=== PATIENT | male | born 1980 | race Caucasian/White ===

== ENCOUNTER 2018-04-16 03:11 | Emergency (ER) | payer OTHER, SELFPAY ==
[2018-04-16] MEDS ORDERED: ONDANSETRON 4 MG/2 ML VIAL ONE (03:28)
[2018-04-16] MEDS ORDERED: NA CHLORIDE 0.9% 1,000 ML ONE (03:28)
[2018-04-16 03:38] LABS: Absolute Lymphocytes (CBC) 1.2 K/uL (0.7-4.9); Absolute Monocytes 0.6 K/uL (0.1-1.3); MCH 30.4 pg (27.0-35.0); MCV 87.1 fL (80-100)
[2018-04-16 03:43] LABS: Potassium 3.8 mEq/L (3.6-5.0)
[2018-04-16 03:44] LABS: Absolute Neutrophil 9.4 K/uL (1.8-8.0); Basophils % 0.2 % (0-1.3); Eosinophils % 1.2 % (0-4.4); Hematocrit 45.3 % (39.6-49.0); Lymphocytes % 10.6 % (15.3-44.8); MPV 8.5 fL (7.6-11.3); Monocytes % 5.6 % (3.3-12.3)
[2018-04-16 03:46] LABS: Albumin 4.3 g/dL (3.2-5.5); Bilirubin Total 1.1 mg/dL (0.3-1.2); Protein, Total 7.6 g/dL (6.0-8.3)
[2018-04-16] MEDS ORDERED: IBUPROFEN 400 MG TAB ONE (04:28)
[2018-04-16 04:52] LABS: Blood Morphology Comment NOT SEEN (NOT SEEN); Platelet Estimate ADEQ
[2018-04-16 05:23] LABS: Urine Blood NEGATIVE (NEG); Urine Glucose NEGATIVE (NEG); Urine Protein TRACE (NEG); Urine Specific Gravity 1.015 (1.005-1.030); Urine pH 8.5 (5.0-7.0)
--- NOTE | 2018-04-16 05:23 | EDPHYS ---
Physician Documentation [facility] Name: Luca Garcia Age: 37 yrs Sex: Male : 1980 Arrival Date: 04/16/2018 Time: 03:12 Bed 5 Private MD: Reid Gracia ED Physician Juan Bowles HPI: 04/16 03:21 This 37 yrs old Male presents to ER via Ambulatory with complaints of ps1 Abdominal Pain, Vomiting. 03:21 States that he had multiple bouts of vomiting that started today. He denies abdominal ps1 pain. Went up to go to the bathroom and felt weak and shaky and decided to come to be evaluated. He has non-bloody or bilious vomiting. No pain at this time. Feels fatigued. . Historical: - Allergies: 03:22 No Known Allergies; ak1 - Home Meds: 03:22 Vitamin B-12 Oral [Active]; Zyrtec Oral [Active]; ak1 - PMHx: 03:22 seasonal allergies; ak1 - PSHx: 03:22 shoulder sx; ak1 - Immunization history:: Adult Immunizations unknown. - Social history:: Smoking status: Patient/guardian denies using tobacco. - Ebola Screening: : No symptoms or risks identified at this time. ROS: 03:21 Constitutional: Negative for fever, chills, and weight loss, Eyes: Negative for injury, ps1 pain, redness, and discharge, Cardiovascular: Negative for chest pain, palpitations, and edema, Respiratory: Negative for shortness of breath, cough, wheezing, and pleuritic chest pain, : Negative for injury, bleeding, discharge, and swelling, MS/Extremity: Negative for injury and deformity, Skin: Negative for injury, rash, and discoloration, Neuro: Negative for headache, weakness, numbness, tingling, and seizure. 03:21 Abdomen/GI: Positive for nausea and vomiting. Exam: 03:21 Constitutional: This is a well developed, well nourished patient who is awake, alert, ps1 and in no acute distress. Head/Face: Normocephalic, atraumatic. Eyes: Pupils equal round and reactive to light, extra-ocular motions intact. Lids and lashes normal. Conjunctiva and sclera are non-icteric and not injected. Chest/axilla: Normal chest wall appearance and motion. Nontender with no deformity. No lesions are appreciated. Respiratory: Lungs have equal breath sounds bilaterally, clear to auscultation and percussion. No rales, rhonchi or wheezes noted. No increased work of breathing, no retractions or nasal flaring. Abdomen/GI: Soft, non-tender, with normal bowel sounds. No distension or tympany. No guarding or rebound. No evidence of tenderness throughout. Back: No spinal tenderness. No costovertebral tenderness. Full range of motion. MS/ Extremity: Pulses equal, no cyanosis. Neurovascular intact. Full, normal range of motion. Neuro: Awake and alert, GCS 15, oriented to person, place, time, and situation. Cranial nerves II-XII grossly intact. Sensory grossly intact. 03:21 Cardiovascular: Rate: tachycardic, Rhythm: regular, Pulses: no pulse deficits are appreciated, JVD: is not appreciated. Vital Signs: 03:20 BP 125 / 89; Pulse 126; Resp 22; Temp 98.1(TE); Pulse Ox 95% on R/A; Weight 124.74 kg ak1 (R); Height 6 ft. 0 in. (182.88 cm) (R); Pain 0/10; 03:35 Temp 100.2(O); lp1 04:23 BP 123 / 67; Pulse 93; Resp 23; Pulse Ox 95% on R/A; ea 04:24 BP 123 / 67; Pulse 95; Resp 18; Temp 100.8(O); Pulse Ox 99% on R/A; Pain 6/10; mg2 05:34 BP 122 / 78; Pulse 90; Resp 18; Temp 99.6; Pulse Ox 100% on R/A; Pain 1/10; mg2 03:20 Body Mass Index 37.30 (124.74 kg, 182.88 cm) ak1 MDM: 03:20 Patient medically screened. ps1 04/16 03:20 Order name: CBC with Diff; Complete Time: 05:09 ps1 04/16 03:20 Order name: Lipase; Complete Time: 04:24 ps1 04/16 03:20 Order name: Urine Microscopic Only; Complete Time: 05:29 ps1 04/16 03:20 Order name: CMP; Complete Time: 04:24 ps1 04/16 03:47 Order name: Manual Differential; Complete Time: 05:09 EDMS 04/16 04:24 Order name: Strep; Complete Time: 05:09 ps1 04/16 03:20 Order name: IV Saline Lock; Complete Time: 03:33 ps1 04/16 03:20 Order name: Labs collected and sent; Complete Time: 03:33 [facility] 04/16 03:20 Order name: Urine Dipstick-Ancillary (obtain specimen); Complete Time: 05:11 ps1 04/16 04:46 Order name: Urine Dipstick--Ancillary (enter results); Complete Time: 05:23 rg2 04/16 04:59 Order name: Throat Culture EDMS Administered Medications: 03:32 Drug: Zofran 4 mg Route: IVP; Site: right antecubital; mg2 05:10 Follow up: Response: No adverse reaction ea 05:24 Follow up: Response: No adverse reaction; Vomiting decreased mg2 03:32 Drug: NS 0.9% 1000 ml Route: IV; Rate: 1 bolus; Site: right antecubital; mg2 05:10 Follow up: Response: No adverse reaction; IV Status: Completed infusion; IV Intake: ea 1000ml 05:23 Follow up: Response: No adverse reaction; IV Status: Completed infusion mg2 04:35 Drug: Motrin 800 mg Route: PO; mg2 05:38 Follow up: Response: No adverse reaction; Pain is decreased; Other; fever decreased mg2 Disposition: 04/16/18 05:22 Discharged to Home. Impression: Nausea with vomiting, unspecified. - Condition is Stable. - Discharge Instructions: Nausea and Vomiting. - Prescriptions for Bentyl 20 mg Oral Tablet - take 1 tablet by ORAL route every 6 hours As needed; 20 tablet. Zofran 4 mg Oral Tablet - take 1 tablet by ORAL route every 12 hours As needed; 20 tablet. - Medication Reconciliation Form, Thank You Letter, Antibiotic Education, Prescription Opioid Use form. - Follow up: Reid Gracia MD; When: As needed; Reason: Recheck today's complaints, Continuance of care, Re-evaluation by your physician. Follow up: Emergency Department; When: As needed; Reason: Fever > 102 F, Worsening of condition. - Problem is new. - Symptoms have improved. Signatures: Dispatcher [employer] EDMS Tara Dangelo RN RN ak1 Juan Bowles MD MD ps1 Figueroa Mancini RN RN mg2 Mariana Aguilera RN, ea Corrections: (The following items were deleted from the chart) 05:37 05:22 04/16/2018 05:22 Discharged to Home. Impression: Nausea with vomiting, mg2 unspecified. Condition is Stable. Forms are Medication Reconciliation Form, Thank You Letter, Antibiotic Education, Prescription Opioid Use. Follow up: Reid Gracia; When: As needed; Reason: Recheck today's complaints, Continuance of care, Re-evaluation by your physician. Follow up: Emergency Department; When: As needed; Reason: Fever > 102 F, Worsening of condition. Problem is new. Symptoms have improved. ps1
--- NOTE | 2018-04-16 05:23 | ER ---
Nurse's Notes [facility] Name: Luca Garcia Age: 37 yrs Sex: Male : 1980 Arrival Date: 04/16/2018 Time: 03:12 Bed 5 Private MD: Reid Gracia Diagnosis: Nausea with vomiting, unspecified Presentation: 04/16 03:20 Presenting complaint: Patient states: vomiting and "shaking" since midnight. pt stated ak1 he last urinated at 1700 yesterday. pt with steady gait from lobby to ER5. Transition of care: patient was not received from another setting of care. Onset of symptoms was April 16, 2018. Risk Assessment: Do you want to hurt yourself or someone else? Patient reports no desire to harm self or others. Initial Sepsis Screen: Does the patient meet any 2 criteria? No. Patient's initial sepsis screen is negative. Does the patient have a suspected source of infection? No. Patient's initial sepsis screen is negative. Care prior to arrival: None. 03:20 Method Of Arrival: Ambulatory ak1 03:20 Acuity: MONET 3 ak1 Triage Assessment: 03:23 General: Behavior is. ak1 Historical: - Allergies: 03:22 No Known Allergies; ak1 - Home Meds: 03:22 Vitamin B-12 Oral [Active]; Zyrtec Oral [Active]; ak1 - PMHx: 03:22 seasonal allergies; ak1 - PSHx: 03:22 shoulder sx; ak1 - Immunization history:: Adult Immunizations unknown. - Social history:: Smoking status: Patient/guardian denies using tobacco. - Ebola Screening: : No symptoms or risks identified at this time. Screenin:23 Abuse screen: Denies threats or abuse. Denies injuries from another. Nutritional ak1 screening: No deficits noted. Tuberculosis screening: No symptoms or risk factors identified. Fall Risk None identified. Assessment: 03:38 General: Appears uncomfortable, Behavior is calm, cooperative. Pain: Complains of pain mg2 in abdomen Pain does not radiate. Pain Quality of pain is described as aching, Pain began gradually, Is lasting more than 1 hour. Neuro: Level of Consciousness is awake, alert, obeys commands, Oriented to person, place, time. Cardiovascular: Capillary refill < 3 seconds Patient's skin is warm and dry. Respiratory: Airway is patent Respiratory effort is even, unlabored, Respiratory pattern is regular, symmetrical. GI: Reports lower abdominal pain, upper abdominal pain, vomiting. : No signs and/or symptoms were reported regarding the genitourinary system. EENT: No signs and/or symptoms were reported regarding the EENT system. Derm: Skin is intact, Skin is pink, warm \\T\\ dry. normal. Musculoskeletal: Circulation, motion, and sensation intact. Vital Signs: 03:20 BP 125 / 89; Pulse 126; Resp 22; Temp 98.1(TE); Pulse Ox 95% on R/A; Weight 124.74 kg ak1 (R); Height 6 ft. 0 in. (182.88 cm) (R); Pain 0/10; 03:35 Temp 100.2(O); lp1 04:23 BP 123 / 67; Pulse 93; Resp 23; Pulse Ox 95% on R/A; ea 04:24 BP 123 / 67; Pulse 95; Resp 18; Temp 100.8(O); Pulse Ox 99% on R/A; Pain 6/10; mg2 05:34 BP 122 / 78; Pulse 90; Resp 18; Temp 99.6; Pulse Ox 100% on R/A; Pain 1/10; mg2 03:20 Body Mass Index 37.30 (124.74 kg, 182.88 cm) ak1 ED Course: 03:12 Patient arrived in ED. ds1 03:12 Reid Gracia MD is Private Physician. ds1 03:15 Juan Bowles MD is Attending Physician. ps1 03:20 Arm band placed on Patient placed in an exam room, on a stretcher, on pulse oximetry, ak1 Patient notified of wait time. 03:21 Triage completed. ak1 03:23 Patient has correct armband on for positive identification. Bed in low position. Call ak1 light in reach. Side rails up X 1. Pulse ox on. NIBP on. 03:33 Inserted saline lock: 20 gauge in right antecubital area, using aseptic technique. mg2 Blood collected. 03:34 Figueroa Mancini RN is Primary Nurse. mg2 03:41 Noise minimized. Warm blanket given. mg2 04:35 Strep swab sent to lab. mg2 05:22 Reid Gracia MD is Referral Physician. ps1 05:36 No provider procedures requiring assistance completed. IV discontinued, intact, mg2 bleeding controlled, No redness/swelling at site. Pressure dressing applied. Administered Medications: 03:32 Drug: Zofran 4 mg Route: IVP; Site: right antecubital; mg2 05:10 Follow up: Response: No adverse reaction ea 05:24 Follow up: Response: No adverse reaction; Vomiting decreased mg2 03:32 Drug: NS 0.9% 1000 ml Route: IV; Rate: 1 bolus; Site: right antecubital; mg2 05:10 Follow up: Response: No adverse reaction; IV Status: Completed infusion; IV Intake: ea 1000ml 05:23 Follow up: Response: No adverse reaction; IV Status: Completed infusion mg2 04:35 Drug: Motrin 800 mg Route: PO; mg2 05:38 Follow up: Response: No adverse reaction; Pain is decreased; Other; fever decreased mg2 Intake: 05:10 IV: 1000ml; Total: 1000ml. ea Outcome: 05:22 Discharge ordered by . ps1 05:36 Discharged to home ambulatory, with family. mg2 05:36 Condition: stable 05:36 Discharge instructions given to patient, family, Instructed on discharge instructions, follow up and referral plans. medication usage, Demonstrated understanding of instructions, follow-up care, medications, Prescriptions given X 2. 05:37 Patient left the ED. mg2 Signatures: Jeimy Castro ds1 Rica Bonner RN RN lp1 Tara Dangelo RN RN ak1 Mariana Aguilera RN RN ea Singer, Phillip, MD MD ps1 Figueroa Mancini RN RN mg2 Corrections: (The following items were deleted from the chart) 04:25 04:24 BP 123 / 67; Pulse 95bpm; Resp 18bpm; Pulse Ox 99% RA; Pain 6/10; mg2 mg2
[2018-04-16 05:25] LABS: Urine Bacteria <20 /HPF (NONE SEEN); Urine Culture Reflex Order NOT NEEDED; Urine RBC <5 /HPF (NONE SEEN)
== END 2018-04-16 05:37 | disposition home or self-care (01) ==
LOC: ER 03:11
DX: R11.2 Nausea with vomiting, unspecified (principal); R10.9 Unspecified abdominal pain
CPT/HCPCS: 36415; 80053; 81003; 81015; 82962; 83690; 85025; 87070; 87081; 96361; 96374; 99284; J2405; J7030